=== PATIENT | female | born 1990 | race Two or more races ===

== ENCOUNTER 2018-05-03 04:04 | Inpatient (IN) | payer OTHER ==
[~2018-05-03] VITALS: Ht 170.2 cm; Wt 69.4 kg
[2018-05-03] MEDS ORDERED: PRENATAL FORMU1 EAC2 PO (09:24)
== END 2018-05-05 13:01 | disposition home or self-care (01) | DRG 807 ==
LOC: LDR 04:04 → OB/GYN 04:04 → LDR 08:21 → OB/GYN 13:48
PROVIDERS: ADMIT Obstetrics & Gynecology
PROC: 4A1HXCZ Monitoring of Products of Conception, Cardiac Rate, External Approach (ICD-10-PCS; 2018-05-03)
PROC: 4A033R1 Measurement of Arterial Saturation, Peripheral, Percutaneous Approach (ICD-10-PCS; 2018-05-03)
PROC: 10E0XZZ Delivery of Products of Conception, External Approach (ICD-10-PCS; principal; 2018-05-04)
PROC: 0HQ9XZZ Repair Perineum Skin, External Approach (ICD-10-PCS; 2018-05-04)
DX: O70.0 First degree perineal laceration during delivery (principal); Z37.0 Single live birth; Z3A.39 39 weeks gestation of pregnancy